=== PATIENT | male | born 1995 | race African-American/Black ===

== ENCOUNTER 2016-03-12 08:36 | Emergency (ER) | payer SELFPAY ==
[~2016-03-12] VITALS: Wt 75.0 kg
[~2016-03-12 08:36] MED LIST: ALBU18HF INHALATION; ALBU8.5H3 INH; ALBU8.5H5 INH; BECL8.7A INH; CLIN-73 PO; HYDR-3498 PO; IBUP-1542 PO; NAPR-688 PO; PRED20TA PO; RANI150T9 PO; RTPRO NEB
== END 2016-03-12 10:24 | disposition left against medical advice (07) ==
LOC: FTE 08:36
DX: Z53.21 Procedure and treatment not carried out due to patient leaving prior to being seen by health care provider (principal)

== ENCOUNTER 2016-03-29 23:17 | Emergency (ER) | payer SELFPAY ==
[~2016-03-29] VITALS: Ht 177.8 cm; Wt 65.9 kg
[2016-03-29 23:24] VITALS: Ht 177.8 cm; Wt 65.9 kg
--- NOTE | 2016-03-30 01:53 | ERD ---
ER Documentation Chief Complaint Date/Time DATE: 03/30/16 TIME: 01:45 Chief Complaint left elbow pain, fell from skateboard x 1 hour ago HPI 21-year-old male presents to emergency department for complaints of left elbow pain after falling off while skating an hour prior to arrival. Patient was skating, the skate got hooked on another person, and he fell, landed on the left elbow. Patient described the pain throbbing pain, 8/10 scale, is worse upon movement, accompanied with swelling. Patient did not take any medications to help with symptoms. ROS All systems reviewed and are negative except as per history of present illness. Medications Home Meds Active Scripts Naproxen* (Naproxen*) 500 Mg Tablet, 500 MG PO BID Y for PAIN, #14 TAB Prov:JOEY CHRISTIE DO 02/01/16 Ranitidine Hcl* (Zantac*) 150 Mg Tablet, 150 MG PO BID Y for EPIGASTRIC PAIN, # 30 TAB Prov:JOEY CHRISTIE DO 02/01/16 Beclomethasone Dip* (Qvar 40*) 7.3 Gm Inha, 1 PUFF INH BID, #1 INHALER Prov:ANDREI FRENCH MD 12/10/15 Albuterol Sulfate* (Ventolin HFA*) 18 Gm Hfa.aer.ad, 2 PUFF INHALATION Q4H, #1 INHALER Prov:ANDREI FRENCH MD 12/10/15 Prednisone* (Prednisone*) 20 Mg Tab, 60 MG PO DAILY for 5 Days, TAB 60 mg by mouth for 2 days then 40 mg a mouth for 3 days. Prov:ANDREI FRENCH MD 12/10/15 Beclomethasone Dip* (Qvar 40*) 7.3 Gm Inha, 1 PUFF INH BID, #2 INHALER Prov:ANDREI FRENCH MD 07/21/15 Albuterol Sulfate* (Ventolin HFA*) 18 Gm Hfa.aer.ad, 2 PUFF INHALATION Q4H, #2 INHALER Prov:ANDREI FRENCH MD 07/21/15 Prednisone* (Prednisone*) 20 Mg Tab, 40 MG PO DAILY for 4 Days, TAB Prov:JAMES HAYES PA-C 06/25/15 Albuterol Sulfate* (Proair HFA*) 8.5 Gm Hfa.aer.ad, 2 PUFF INH Q4, #1 INHALER Prov:JAMES HAYES PA-C 06/25/15 Albuterol Sulfate* (Proair HFA*) 8.5 Gm Hfa.aer.ad, 2 PUFF INH Q4, #1 INHALER Prov:JAMES HAYES PA-C 05/05/15 Albuterol Sulfate* (Proventil* Neb) 0.083% Neb, 2.5 MG NEB Q4 Y for SHORTNESS OF BREATH, #30 EA Prov:JAMES HAYES PA-C 05/05/15 Clindamycin Hcl* (Clindamycin Hcl*) 300 Mg Capsule, 300 MG PO TID for 10 Days, CAP Prov:JAMES HAYES PA-C 05/05/15 Ibuprofen* (Motrin*) 600 Mg Tab, 600 MG PO Q6, #30 TAB Prov:JAMES HAYES PA-C 05/05/15 Hydrocodone Bit-Acetaminophen* ([place]*) 5-325 Mg Tab, 1 TAB PO Q6 Y for PAIN, # 7 TAB Prov:JAMES HAYES PA-C 05/05/15 Prednisone* (Prednisone*) 20 Mg Tab, 40 MG PO DAILY for 4 Days, TAB Prov:JAMES HAYES PA-C 05/05/15 Beclomethasone Dip* (Qvar 40*) 7.3 Gm Inha, 1 PUFF INH BID, #1 INH Prov:ROBYN FIGUEROA PA-C 12/01/14 Albuterol Sulfate* (Albuterol Sulfate* HFA) 8.5 Gm Hfa.aer.ad, 1-2 PUFF INH Q4 Y for SHORTNESS OF BREATH, #1 EA Prov:ROBYN FIGUEROA PA-C 08/17/14 Allergies Allergies: Coded Allergies: No Known Allergy (Unverified , 03/29/16) PMhx/Soc History of Surgery: Yes (head surgery at 5 years old) Anesthesia Reaction: No Hx Neurological Disorder: No Hx Respiratory Disorders: Yes (asthma) Hx Cardiac Disorders: No Hx Psychiatric Problems: No Hx Miscellaneous Medical Probl: No Hx Alcohol Use: No Hx Substance Use: No Hx Tobacco Use: No FmHx Family History: No coronary disease, No diabetes, No other Physical Exam Vitals Vital Signs Date Time Temp Pulse Resp B/P Pulse Ox O2 Delivery O2 Flow Rate FiO2 03/29/16 23:24 98.3 62 20 131/56 100 Physical Exam GENERAL: The patient is well developed and appropriate for usual state of health, in no apparent distress. CHEST: Clear to auscultation bilaterally. There are no rales, wheezes or rhonchi. HEART: Regular rate and rhythm. No murmurs, clicks, rubs or gallops. No S3 or S4. ABDOMEN: Soft, nontender and nondistended. Good bowel sounds. No rebound or guarding. No gross peritonitis. No gross organomegaly or masses. No Starr sign or McBurney point tenderness. BACK: No midline or flank tenderness. EXTREMITIES: Tenderness on palpation on the left elbow, swelling noted, able to do full range of motion because of the pain. Equal pulses bilaterally. Full range of motion about the joints of the body. Grossly neurovascularly intact. NEURO: Alert and oriented. Cranial nerves 2-12 intact. Motor strength in all 4 extremities with 5/5 strength. Sensation grossly intact. Normal speech and gait. SKIN: There is no apparent rash or petechia. The skin is warm and dry. HEMATOLOGIC AND LYMPHATIC: There is no evidence of excessive bruising or lymphedema. No gross cervical, axillary, or inguinal lymphadenopathy. Results 24 hrs Current Medications Medications (Trade) Dose Ordered Sig/Clement Route PRN Reason Start Time Stop Time Status Last Admin Dose Admin Acetaminophen/ Hydrocodone Bitart ([place] (5/325)) 1 tab ONCE ONCE PO 03/30/16 02:00 03/30/16 02:01 DC 03/30/16 02:10 Patient was given medication for pain here in emergency department, after treatment, patient verbalized feeling much better. Patient's pain is improved. PROCEDURE: XR Elbow. CLINICAL INDICATION: Left elbow pain and swelling status post fall. TECHNIQUE: AP, lateral and oblique views of the left elbow performed. COMPARISON: None. FINDINGS: There is normal mineralization and alignment. No fracture or osseous lesion is identified. There are normal joints without evidence of arthritis or effusion. The soft tissues are unremarkable. IMPRESSION: Unremarkable examination. RPTAT: [facility] Physician Topher Date Time Electronically viewed and signed by Physician Topher on 03/30/2016 02:26 RS/ CC: GIULIA GOSS NP After receiving patients xray report, a long-arm splint was applied on the patients left arm. After application of the splint, patient has intact sensation and circulation on distal area of the affected joint. Patient does not complain of numbness or tingling after application of the splint. Patient tolerated procedure well. Sling was given to use afterwards Procedures/MDM Medical Decision Making: Patient's pain is most likely consistent with a contusion or a sprain. There is no suspicion for neurovascular compromise. Patient has intact sensation and circulation of the affected extremity. There is low suspicion for septic arthritis. Patient does not have any fever. Radiology exams of the affected area does not show any fracture or dislocation. Repeat x-rays in 1 week was recommended in case there was a hairline fracture noted. At this time, patient was splinted, and a sling was placed. Patient was advised to have it rechecked in one week with primary care doctor. No symptoms of compartment syndrome. Disposition: Home. Patient is given prescription for ibuprofen for mild to moderate pain, [place] for severe pain. Patient was advised to elevate the affected area and apply ice on affected area. Patient was advised that if symptoms are worse, numbness, tingling, high fever, unable to move joint, worsening symptoms, to return to emergency department immediately. Otherwise, patient is advised to follow up with the primary care doctor in 5-7 days for reevaluation of symptoms. Repeat x-rays in 1 week. Departure Diagnosis: Primary Impression: Elbow pain Laterality: left Qualified Code: M25.522 - Left elbow pain Condition: Stable Patient Instructions: Contusion, Elbow Additional Instructions: Patient is given prescription for ibuprofen for mild to moderate pain, [place] for severe pain. Patient was advised to elevate the affected area and apply ice on affected area. Patient was advised that if symptoms are worse, numbness, tingling, high fever, unable to move joint, worsening symptoms, to return to emergency department immediately. Otherwise, patient is advised to follow up with the primary care doctor in 5-7 days for reevaluation of symptoms. Repeat x- rays in 1 week. GIULIA GOSS NP Mar 30, 2016 01:53
[2016-03-30] MEDS ORDERED: HYDROCODONE/APAP (5/325) TAB PO ONE (02:00)
--- NOTE | 2016-03-30 02:27 | RADRPT ---
PROCEDURE: XR Elbow. CLINICAL INDICATION: Left elbow pain and swelling status post fall. TECHNIQUE: AP, lateral and oblique views of the left elbow performed. COMPARISON: None. FINDINGS: There is normal mineralization and alignment. No fracture or osseous lesion is identified. There are normal joints without evidence of arthritis or effusion. The soft tissues are unremarkable. IMPRESSION: Unremarkable examination. RPTAT: [facility] Physician Topher Date Time Electronically viewed and signed by Physician Topher on 03/30/2016 02:26 RS/
[2016-03-30] MEDS ORDERED: HYDR-906 PO (02:39)
[2016-03-30] MEDS ORDERED: IBUP-1542 PO (02:39)
[2016-03-30 03:35] VITALS: BP 120/60; PULSE 70; RESP 18; TEMP 98.7
== END 2016-03-30 03:35 | disposition home or self-care (01) ==
LOC: FTE 23:17
DX: S59.902A Unspecified injury of left elbow, initial encounter (principal); J45.909 Unspecified asthma, uncomplicated; V00.131A Fall from skateboard, initial encounter; Y92.9 Unspecified place or not applicable

== ENCOUNTER 2016-06-28 10:56 | Emergency (ER) | payer OTHER ==
[~2016-06-28] VITALS: Ht 180.3 cm; Wt 73.5 kg
[~2016-06-28 10:56] MED LIST changes: +HYDR-906 PO
[2016-06-28 10:58] VITALS: Ht 180.3 cm; Wt 73.5 kg
[2016-06-28] MEDS ORDERED: ALBU8.5H3 INH (11:37)
--- NOTE | 2016-06-28 19:55 | ERD ---
ER Documentation Chief Complaint Date/Time DATE: 06/28/16 TIME: 19:54 Chief Complaint med refill (proair) HPI 21-year-old man here for albuterol prescription. He states he has a history of asthma but denies wheezing at this time. Denies recent fevers or chills, no chest pain or shortness of breath. ROS All systems reviewed and are negative except as per history of present illness. Medications Home Meds Active Scripts Albuterol Sulfate* (Proair HFA*) 8.5 Gm Hfa.aer.ad, 2 PUFF INH Q6H Y for WHEEZING AND SOB, #1 INHALER 2 Refills Prov:CADEN MORA MD 06/28/16 Hydrocodone/Acetaminophen ([place] 5-325 Tablet) 1 Each Tablet, 1 TAB PO Q6H Y for SEVERE PAIN LEVEL 7-10, #20 TAB Prov:GIULIA GOSS NP 03/30/16 Ibuprofen* (Motrin*) 600 Mg Tab, 600 MG PO Q6H Y for PAIN AND OR ELEVATED TEMP, #30 TAB Prov:GIULIA GOSS NP 03/30/16 Naproxen* (Naproxen*) 500 Mg Tablet, 500 MG PO BID Y for PAIN, #14 TAB Prov:JOEY CHRISTIE DO 02/01/16 Ranitidine Hcl* (Zantac*) 150 Mg Tablet, 150 MG PO BID Y for EPIGASTRIC PAIN, # 30 TAB Prov:JOEY CHRISTIE DO 02/01/16 Beclomethasone Dip* (Qvar 40*) 7.3 Gm Inha, 1 PUFF INH BID, #1 INHALER Prov:ANDREI FRENCH MD 12/10/15 Albuterol Sulfate* (Ventolin HFA*) 18 Gm Hfa.aer.ad, 2 PUFF INHALATION Q4H, #1 INHALER Prov:ANDREI FRENCH MD 12/10/15 Prednisone* (Prednisone*) 20 Mg Tab, 60 MG PO DAILY for 5 Days, TAB 60 mg by mouth for 2 days then 40 mg a mouth for 3 days. Prov:ANDREI FRENCH MD 12/10/15 Beclomethasone Dip* (Qvar 40*) 7.3 Gm Inha, 1 PUFF INH BID, #2 INHALER Prov:ANDREI FRENCH MD 07/21/15 Albuterol Sulfate* (Ventolin HFA*) 18 Gm Hfa.aer.ad, 2 PUFF INHALATION Q4H, #2 INHALER Prov:ANDREI FRENCH MD 07/21/15 Prednisone* (Prednisone*) 20 Mg Tab, 40 MG PO DAILY for 4 Days, TAB Prov:JAMES HAYES PA-C 06/25/15 Albuterol Sulfate* (Proair HFA*) 8.5 Gm Hfa.aer.ad, 2 PUFF INH Q4, #1 INHALER Prov:JAMES HAYES PA-C 06/25/15 Albuterol Sulfate* (Proair HFA*) 8.5 Gm Hfa.aer.ad, 2 PUFF INH Q4, #1 INHALER Prov:JAMES HAYES PA-C 05/05/15 Albuterol Sulfate* (Proventil* Neb) 0.083% Neb, 2.5 MG NEB Q4 Y for SHORTNESS OF BREATH, #30 EA Prov:JAMES HAYES PA-C 05/05/15 Clindamycin Hcl* (Clindamycin Hcl*) 300 Mg Capsule, 300 MG PO TID for 10 Days, CAP Prov:JAMES HAYES PA-C 05/05/15 Ibuprofen* (Motrin*) 600 Mg Tab, 600 MG PO Q6, #30 TAB Prov:JAMES HAYES PA-C 05/05/15 Hydrocodone Bit-Acetaminophen* ([place]*) 5-325 Mg Tab, 1 TAB PO Q6 Y for PAIN, # 7 TAB Prov:JAMES HAYES PA-C 05/05/15 Prednisone* (Prednisone*) 20 Mg Tab, 40 MG PO DAILY for 4 Days, TAB Prov:JAMES HAYES PA-C 05/05/15 Beclomethasone Dip* (Qvar 40*) 7.3 Gm Inha, 1 PUFF INH BID, #1 INH Prov:ROBYN FIGUEROA PA-C 12/01/14 Albuterol Sulfate* (Albuterol Sulfate* HFA) 8.5 Gm Hfa.aer.ad, 1-2 PUFF INH Q4 Y for SHORTNESS OF BREATH, #1 EA Prov:ROBYN FIGUEROA PA-C 08/17/14 Allergies Allergies: Coded Allergies: No Known Allergy (Unverified , 06/28/16) PMhx/Soc Asthma History of Surgery: Yes (head surgery at 5 years old) Anesthesia Reaction: No Hx Neurological Disorder: No Hx Respiratory Disorders: Yes (asthma) Hx Cardiac Disorders: No Hx Psychiatric Problems: No Hx Miscellaneous Medical Probl: No Hx Alcohol Use: No Hx Substance Use: No Hx Tobacco Use: No Smoking Status: Unknown if ever smoked FmHx Family History: No diabetes Physical Exam Vitals Vital Signs Date Time Temp Pulse Resp B/P Pulse Ox O2 Delivery O2 Flow Rate FiO2 06/28/16 10:58 97.4 83 18 120/75 99 Physical Exam GENERAL: Well-developed, well-nourished, well-hydrated, in no apparent distress , looks nontoxic in appearance HEENT: Moist mucous membranes, pink conjunctiva, no cervical spine tenderness or step-off deformities, no goiter, no jaundice or icterus, extraocular movements intact without pain. No submandibular induration, and no pharyngeal erythema NEURO: Alert and oriented 3, cranial nerves II through XII intact bilaterally, pupils equal round reactive to light, no focal deficits or facial asymmetry, sensation intact distally Strength 5/5 in upper and lower extremities bilaterally CARDIAC: Regular rate and rhythm, no murmurs rubs or gallops LUNGS: Clear bilaterally no wheezing crackles or stridor ABDOMEN: Soft nontender, no guarding, no rigidity, no rebound, no psoas sign no obturator sign. Normoactive bowel sounds SKIN: Warm and dry to touch, no abrasions, contusions, or hematomas, no lacerations, no ecchymosis, no target lesions, and without ulcers EXTREMITIES: No clubbing cyanosis or edema, calves are bilaterally symmetrical, no Homans sign, no popliteal cord sign. Distal pulses equal and bilateral PSYCH: Normal affect without agitation or irritability Procedures/MDM Differential diagnoses considered, included but not limited to acute coronary syndrome, pulmonary embolism, aortic dissection, abdominal aortic aneurysm, sepsis, stroke, meningitis, encephalitis, pneumonia, appendicitis, cholecystitis , bowel obstruction, pyelonephritis, nephrolithiasis, cystitis, as well as metabolic, hematologic, and electrolyte abnormalities. As well as abscess, cellulitis, fractures, and dislocations. Patient feels much better at this time, and vital signs are normal, symptoms have improved. I did give strict instructions to return to the ED if symptoms continue or worsen, patient will otherwise follow-up with primary care physician. Patient understood instructions and agreed to plan. Departure Diagnosis: Primary Impression: Encounter for medication refill Condition: Good Patient Instructions: Asthma, Acute (Adult) Referrals: ANTONIO ELIZABETH DAVID MD Jun 28, 2016 19:55
== END 2016-06-28 12:08 | disposition home or self-care (01) ==
LOC: FTE 10:56
DX: Z76.0 Encounter for issue of repeat prescription (principal); J45.909 Unspecified asthma, uncomplicated
CPT/HCPCS: 99281

== ENCOUNTER 2016-08-12 22:15 | Emergency (ER) | payer OTHER ==
[~2016-08-12] VITALS: Ht 180.3 cm; Wt 74.0 kg
[2016-08-12 22:29] VITALS: Ht 180.3 cm; Wt 74.0 kg
[2016-08-12] MEDS ORDERED: NEOMYC/POLYMYX/BACIT 0.9 GM OINT TOP ONE (23:30)
[2016-08-12] MEDS ORDERED: IBUPROFEN 200 MG TAB PO ONE (23:30)
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
[2016-08-13] MEDS ORDERED: CEPH-443 PO (00:52)
[2016-08-13] MEDS ORDERED: IBUP400T22 PO (00:52)
[2016-08-13] MEDS ORDERED: CYCL-319 PO (00:52)
[2016-08-13 01:01] VITALS: BP 113/72; PULSE 63; RESP 16; TEMP 97.4
== END 2016-08-13 01:03 | disposition home or self-care (01) ==
LOC: FTE 22:15
DX: S50.812A Abrasion of left forearm, initial encounter (principal); S39.92XA Unspecified injury of lower back, initial encounter; J45.909 Unspecified asthma, uncomplicated; S60.551A Superficial foreign body of right hand, initial encounter; S60.552A Superficial foreign body of left hand, initial encounter; V86.59XA Driver of other special all-terrain or other off-road motor vehicle injured in nontraffic accident, initial encounter
CPT/HCPCS: Z7502; Z7610; 99284

== ENCOUNTER 2016-08-31 10:31 | Emergency (ER) | payer OTHER ==
[~2016-08-31] VITALS: Ht 157.5 cm; Wt 74.0 kg
[~2016-08-31 10:31] MED LIST changes: +CEPH-443 PO; +CYCL-319 PO; +IBUP400T22 PO
[2016-08-31 10:34] VITALS: Ht 157.5 cm; Wt 74.0 kg
[2016-08-31] MEDS ORDERED: ALBU18HF INHALATION (10:51)
--- NOTE | 2016-08-31 13:49 | ERD ---
ER Documentation Chief Complaint Date/Time DATE: 08/31/16 TIME: 13:48 Chief Complaint medication refill HPI Patient is a 21-year-old male with asthma who presents for a refill of his Ventolin. The patient said that he still has Ventolin but needs a refill for when he runs out. He works as a wheel loader operator and feels like he cannot work without this. Upon review of old medical records the patient has multiple visits to the ER for various complaints. He does not remember the name of his primary doctor. ROS All systems reviewed and are negative except as per history of present illness. Medications Home Meds Active Scripts Albuterol Sulfate* (Ventolin HFA*) 18 Gm Hfa.aer.ad, 2 PUFF INHALATION Q4H, #1 INHALER Prov:LEANNE FRANKLIN MD 08/31/16 Cyclobenzaprine Hcl* (Cyclobenzaprine Hcl*) 10 Mg Tablet, 10 MG PO TID, #15 TAB Prov:YRIS,LUAN 08/13/16 Ibuprofen* (Motrin*) 400 Mg Tab, 400 MG PO Q6, #30 TAB Prov:YRIS,LUAN 08/13/16 Cephalexin* (Keflex*) 500 Mg Capsule, 500 MG PO QID for 10 Days, CAP Prov:YRIS,LUAN 08/13/16 Albuterol Sulfate* (Proair HFA*) 8.5 Gm Hfa.aer.ad, 2 PUFF INH Q6H Y for WHEEZING AND SOB, #1 INHALER 2 Refills Prov:CADEN MORA MD 06/28/16 Hydrocodone/Acetaminophen ([place] 5-325 Tablet) 1 Each Tablet, 1 TAB PO Q6H Y for SEVERE PAIN LEVEL 7-10, #20 TAB Prov:GIULIA GOSS NP 03/30/16 Ibuprofen* (Motrin*) 600 Mg Tab, 600 MG PO Q6H Y for PAIN AND OR ELEVATED TEMP, #30 TAB Prov:GIULIA GOSS NP 03/30/16 Naproxen* (Naproxen*) 500 Mg Tablet, 500 MG PO BID Y for PAIN, #14 TAB Prov:JOEY CHRISTIE DO 02/01/16 Ranitidine Hcl* (Zantac*) 150 Mg Tablet, 150 MG PO BID Y for EPIGASTRIC PAIN, # 30 TAB Prov:JOEY CHRISTIE DO 02/01/16 Beclomethasone Dip* (Qvar 40*) 7.3 Gm Inha, 1 PUFF INH BID, #1 INHALER Prov:ANDREI FRENCH MD 12/10/15 Albuterol Sulfate* (Ventolin HFA*) 18 Gm Hfa.aer.ad, 2 PUFF INHALATION Q4H, #1 INHALER Prov:ANDREI FRENCH MD 12/10/15 Prednisone* (Prednisone*) 20 Mg Tab, 60 MG PO DAILY for 5 Days, TAB 60 mg by mouth for 2 days then 40 mg a mouth for 3 days. Prov:ANDREI FRENCH MD 12/10/15 Beclomethasone Dip* (Qvar 40*) 7.3 Gm Inha, 1 PUFF INH BID, #2 INHALER Prov:ANDREI FRENCH MD 07/21/15 Albuterol Sulfate* (Ventolin HFA*) 18 Gm Hfa.aer.ad, 2 PUFF INHALATION Q4H, #2 INHALER Prov:ANDREI FRENCH MD 07/21/15 Prednisone* (Prednisone*) 20 Mg Tab, 40 MG PO DAILY for 4 Days, TAB Prov:JAMES HAYES PA-C 06/25/15 Albuterol Sulfate* (Proair HFA*) 8.5 Gm Hfa.aer.ad, 2 PUFF INH Q4, #1 INHALER Prov:JAMES HAYES PA-C 06/25/15 Albuterol Sulfate* (Proair HFA*) 8.5 Gm Hfa.aer.ad, 2 PUFF INH Q4, #1 INHALER Prov:JAMES HAYES PA-C 05/05/15 Albuterol Sulfate* (Proventil* Neb) 0.083% Neb, 2.5 MG NEB Q4 Y for SHORTNESS OF BREATH, #30 EA Prov:JAMES HAYES PA-C 05/05/15 Clindamycin Hcl* (Clindamycin Hcl*) 300 Mg Capsule, 300 MG PO TID for 10 Days, CAP Prov:JAMES HAYES PA-C 05/05/15 Ibuprofen* (Motrin*) 600 Mg Tab, 600 MG PO Q6, #30 TAB Prov:JAMES HAYES PA-C 05/05/15 Hydrocodone Bit-Acetaminophen* ([place]*) 5-325 Mg Tab, 1 TAB PO Q6 Y for PAIN, # 7 TAB Prov:JAMES HAYES PA-C 05/05/15 Prednisone* (Prednisone*) 20 Mg Tab, 40 MG PO DAILY for 4 Days, TAB Prov:JAMES HAYES PA-C 05/05/15 Beclomethasone Dip* (Qvar 40*) 7.3 Gm Inha, 1 PUFF INH BID, #1 INH Prov:ROBYN FIGUEROA PA-C 12/01/14 Albuterol Sulfate* (Albuterol Sulfate* HFA) 8.5 Gm Hfa.aer.ad, 1-2 PUFF INH Q4 Y for SHORTNESS OF BREATH, #1 EA Prov:ROBYN FIGUEROA PA-C 08/17/14 Allergies Allergies: Coded Allergies: No Known Allergy (Unverified , 08/31/16) PMhx/Soc History of Surgery: Yes (head surgery at 5 years old) Anesthesia Reaction: No Hx Neurological Disorder: No Hx Respiratory Disorders: Yes (asthma) Hx Cardiac Disorders: No Hx Psychiatric Problems: No Hx Miscellaneous Medical Probl: No Hx Alcohol Use: Yes Hx Substance Use: No Hx Tobacco Use: No FmHx Family History: No diabetes Physical Exam Vitals Vital Signs Date Time Temp Pulse Resp B/P Pulse Ox O2 Delivery O2 Flow Rate FiO2 08/31/16 10:34 97.8 58 20 108/62 99 Physical Exam Const: No acute distress Head: Atraumatic Eyes: Normal Conjunctiva ENT: Normal External Ears, Nose and Mouth. Neck: Full range of motion..~ No meningismus. Resp: Clear to auscultation bilaterally Cardio: Regular rate and rhythm, no murmurs Abd: Soft, non tender, non distended. Normal bowel sounds Skin: No petechiae or rashes Back: No midline or flank tenderness Ext: No cyanosis, or edema Neur: Awake and alert Psych: Normal Mood and Affect Procedures/MDM Patient is a 21-year-old male presents for a refill for his Ventolin. The patient will be given a prescription for Ventolin. He has no difficulty with breathing at this time and has no complaints. He can return for any worsening symptoms. Departure Diagnosis: Primary Impression: Encounter for medication refill Condition: Fair Patient Instructions: Asthma Medications Referrals: [facility] Additional Instructions: Call your primary care doctor TOMORROW for an appointment during the next 1 WEEK.Tell the medical secretary receptionist that you were referred from this facility.See the doctor sooner or return here if your condition worsens before your appointment time. LEANNE FRANKLIN MD Aug 31, 2016 13:49
== END 2016-08-31 11:07 | disposition home or self-care (01) ==
LOC: FTE 10:31
DX: Z76.0 Encounter for issue of repeat prescription (principal); J45.909 Unspecified asthma, uncomplicated
CPT/HCPCS: 99283

== ENCOUNTER 2016-09-18 10:55 | Emergency (ER) | END 2016-09-18 11:30 | disposition home or self-care (01) | DX: Z09 Encounter for follow-up examination after completed treatment for conditions other than malignant neoplasm (principal); J45.909 Unspecified asthma, uncomplicated ==

== ENCOUNTER 2016-09-28 07:29 | Emergency (ER) | payer OTHER ==
[~2016-09-28] VITALS: Wt 91.0 kg
[2016-09-28] MEDS ORDERED: ALBU18HF INHALATION (07:41)
--- NOTE | 2016-09-28 07:46 | ERD ---
ER Documentation Chief Complaint Date/Time DATE: 09/28/16 TIME: 07:44 Chief Complaint MED REFILL HPI This is a 21-year-old male who presents the emergency department today for a medication refill and work note. Patient states he was sent here to the emergency department by his employer because his inhaler is "". Denies any symptoms at this time. Denies any fevers or chills or cough. ROS All systems reviewed and are negative except as per history of present illness. Medications Home Meds Active Scripts Albuterol Sulfate* (Ventolin HFA*) 18 Gm Hfa.aer.ad, 2 PUFF INHALATION Q4H, #1 INHALER Prov:JAZMIN AGGARWAL PA-C 09/28/16 Albuterol Sulfate* (Ventolin HFA*) 18 Gm Hfa.aer.ad, 2 PUFF INHALATION Q4H, #1 INHALER Prov:LEANNE FRANKLIN MD 08/31/16 Cyclobenzaprine Hcl* (Cyclobenzaprine Hcl*) 10 Mg Tablet, 10 MG PO TID, #15 TAB Prov:YRIS,LUAN 08/13/16 Ibuprofen* (Motrin*) 400 Mg Tab, 400 MG PO Q6, #30 TAB Prov:YRIS,LUAN 08/13/16 Cephalexin* (Keflex*) 500 Mg Capsule, 500 MG PO QID for 10 Days, CAP Prov:YRIS,LUAN 08/13/16 Albuterol Sulfate* (Proair HFA*) 8.5 Gm Hfa.aer.ad, 2 PUFF INH Q6H Y for WHEEZING AND SOB, #1 INHALER 2 Refills Prov:CADEN MORA MD 06/28/16 Hydrocodone/Acetaminophen ([place] 5-325 Tablet) 1 Each Tablet, 1 TAB PO Q6H Y for SEVERE PAIN LEVEL 7-10, #20 TAB Prov:GIULIA GOSS NP 03/30/16 Ibuprofen* (Motrin*) 600 Mg Tab, 600 MG PO Q6H Y for PAIN AND OR ELEVATED TEMP, #30 TAB Prov:GIULIA GOSS NP 03/30/16 Naproxen* (Naproxen*) 500 Mg Tablet, 500 MG PO BID Y for PAIN, #14 TAB Prov:JOEY CHRISTIE DO 02/01/16 Ranitidine Hcl* (Zantac*) 150 Mg Tablet, 150 MG PO BID Y for EPIGASTRIC PAIN, # 30 TAB Prov:JOEY CHRISTIE DO 02/01/16 Beclomethasone Dip* (Qvar 40*) 7.3 Gm Inha, 1 PUFF INH BID, #1 INHALER Prov:ANDREI FRENCH MD 12/10/15 Albuterol Sulfate* (Ventolin HFA*) 18 Gm Hfa.aer.ad, 2 PUFF INHALATION Q4H, #1 INHALER Prov:ANDREI FRENCH MD 12/10/15 Prednisone* (Prednisone*) 20 Mg Tab, 60 MG PO DAILY for 5 Days, TAB 60 mg by mouth for 2 days then 40 mg a mouth for 3 days. Prov:ANDREI FRENCH MD 12/10/15 Beclomethasone Dip* (Qvar 40*) 7.3 Gm Inha, 1 PUFF INH BID, #2 INHALER Prov:ANDREI FRENCH MD 07/21/15 Albuterol Sulfate* (Ventolin HFA*) 18 Gm Hfa.aer.ad, 2 PUFF INHALATION Q4H, #2 INHALER Prov:ANDREI FRENCH MD 07/21/15 Prednisone* (Prednisone*) 20 Mg Tab, 40 MG PO DAILY for 4 Days, TAB Prov:JAMES HAYES PA-C 06/25/15 Albuterol Sulfate* (Proair HFA*) 8.5 Gm Hfa.aer.ad, 2 PUFF INH Q4, #1 INHALER Prov:JAMES HAYES PA-C 06/25/15 Albuterol Sulfate* (Proair HFA*) 8.5 Gm Hfa.aer.ad, 2 PUFF INH Q4, #1 INHALER Prov:JAMES HAYES PA-C 05/05/15 Albuterol Sulfate* (Proventil* Neb) 0.083% Neb, 2.5 MG NEB Q4 Y for SHORTNESS OF BREATH, #30 EA Prov:JAMES HAYES PA-C 05/05/15 Clindamycin Hcl* (Clindamycin Hcl*) 300 Mg Capsule, 300 MG PO TID for 10 Days, CAP Prov:JAMES HAYES PA-C 05/05/15 Ibuprofen* (Motrin*) 600 Mg Tab, 600 MG PO Q6, #30 TAB Prov:JAMES HAYES PA-C 05/05/15 Hydrocodone Bit-Acetaminophen* ([place]*) 5-325 Mg Tab, 1 TAB PO Q6 Y for PAIN, # 7 TAB Prov:JAMES HAYES PA-C 05/05/15 Prednisone* (Prednisone*) 20 Mg Tab, 40 MG PO DAILY for 4 Days, TAB Prov:JAMES HAYES PA-C 05/05/15 Beclomethasone Dip* (Qvar 40*) 7.3 Gm Inha, 1 PUFF INH BID, #1 INH Prov:ROBYN FIGUEROA PA-C 12/01/14 Albuterol Sulfate* (Albuterol Sulfate* HFA) 8.5 Gm Hfa.aer.ad, 1-2 PUFF INH Q4 Y for SHORTNESS OF BREATH, #1 EA Prov:ROBYN FIGUEROA PA-C 08/17/14 Allergies Allergies: Coded Allergies: No Known Allergy (Unverified , 09/18/16) PMhx/Soc History of Surgery: Yes (head surgery at 5 years old) Anesthesia Reaction: No Hx Neurological Disorder: No Hx Respiratory Disorders: Yes (asthma) Hx Cardiac Disorders: No Hx Psychiatric Problems: No Hx Miscellaneous Medical Probl: No Hx Alcohol Use: Yes (socially) Hx Substance Use: No Hx Tobacco Use: No Smoking Status: Never smoker Physical Exam Vitals Vital Signs Date Time Temp Pulse Resp B/P Pulse Ox O2 Delivery O2 Flow Rate FiO2 09/28/16 07:31 98.0 65 18 132/81 99 Physical Exam Const: No acute distress Head: Atraumatic Eyes: Normal Conjunctiva ENT: Normal External Ears, Nose and Mouth. Neck: Full range of motion..~ No meningismus. Resp: Clear to auscultation bilaterally Cardio: Regular rate and rhythm, no murmurs Skin: No petechiae or rashes Neur: Awake and alert Psych: Normal Mood and Affect Procedures/MDM This is a 21-year-old male who presents to the emergency department today for refill on his medication as he was sent here to the emergency department by his employer because his inhaler was "". In looking at the patient's inhaler at the expiration is September 2017. I explained to the patient that the # 18 is the year and not the day of the month. I explained to the patient that the inhaler is not . Patient understood. I have explained to him that he needs to explain this to his employer. I did also put this on a work note. Patient has no complaints at this time. He is not having an acute asthma attack. I do not feel he requires workup or imaging at this time. Patient was here for medication refill and work note. I did give the patient a refill on his Ventolin. At this time the patient is stable for discharge and outpatient management. Patient should follow up with their PCP in the next 1-2 days. They may return to the emergency department sooner for any persistent or worsening of symptoms. Patient understood and agreed with the plan. Departure Diagnosis: Primary Impression: Encounter for medication refill Condition: Fair Patient Instructions: Taking Medicine Safely Referrals: [facility] YOU HAVE RECEIVED A MEDICAL SCREENING EXAM AND THE RESULTS INDICATE THAT YOU DO NOT HAVE A CONDITION THAT REQUIRES URGENT TREATMENT IN THE EMERGENCY DEPARTMENT. FURTHER EVALUATION AND TREATMENT OF YOUR CONDITION CAN WAIT UNTIL YOU ARE SEEN IN YOUR DOCTORS OFFICE WITHIN THE NEXT 1-2 DAYS. IT IS YOUR RESPONSIBILITY TO MAKE AN APPOINTMENT FOR FOLOW-UP CARE. IF YOU HAVE A PRIMARY DOCTOR --you should call your primary doctor and schedule an appointment IF YOU DO NOT HAVE A PRIMARY DOCTOR YOU CAN CALL OUR PHYSICIAN REFERRAL HOTLINE AT IF YOU CAN NOT AFFORD TO SEE A PHYSICIAN YOU CAN CHOSE FROM THE FOLLOWING [facility] [address] [facility]. [facility] [address] [facility]. [facility] [address] [facility]. [facility] [address] [facility] [address] [facility]. [facility]. [address] Additional Instructions: Call your primary care doctor TOMORROW for an appointment during the next 1-2 days.See the doctor sooner or return here if your condition worsens before your appointment time. Take medication as prescribed JAZMIN AGGARWAL PA-C Sep 28, 2016 07:46
== END 2016-09-28 07:53 | disposition home or self-care (01) ==
LOC: FTE 07:29
DX: Z76.0 Encounter for issue of repeat prescription (principal); J45.909 Unspecified asthma, uncomplicated
CPT/HCPCS: 99281

== ENCOUNTER 2016-12-30 21:16 | Emergency (ER) | payer OTHER ==
[~2016-12-30] VITALS: Ht 172.7 cm; Wt 73.0 kg
[2016-12-30 21:33] VITALS: Ht 172.7 cm; Wt 73.0 kg
[2016-12-31] MEDS ORDERED: predniSONE 20 MG TAB PO STA (00:27)
[2016-12-31] MEDS ORDERED: IPRATROPIUM (NEB) 0.5 MG/2.5 ML AMP NEB STA (00:27)
[2016-12-31] MEDS ORDERED: ALBUTEROL 0.5% (NEB) 2.5 MG/0.5 ML AMP INH STA (00:27)
[2016-12-31] MEDS ORDERED: IBUPROFEN 600 MG TAB PO ONE (01:30)
[2016-12-31] MEDS ORDERED: ALBU8.5H3 INH (01:32)
[2016-12-31] MEDS ORDERED: PRED20TA PO (01:32)
[2016-12-31 02:03] VITALS: BP 115/67; PULSE 67; RESP 14; TEMP 98.8
--- NOTE | 2016-12-31 02:03 | ERD ---
ER Documentation Chief Complaint Chief Complaint shortness of breath/asthma x 2 hours HPI Patient is 21-year-old male with a past medical history of asthma presents to the ED for concerns of shortness of breath and wheezing 3 hours. Patient states he ran out of his albuterol inhaler. Patient states he does have a dry cough. Patient denies any fevers. Patient denies any previous history of requiring intubation. Patient denies any chest pain, left upper extremity pain , diaphoresis, nausea, vomiting or loss of consciousness. Patient denies any recent travel or sick contacts. ROS All systems reviewed and are negative except as per history of present illness. Medications Home Meds Active Scripts Albuterol Sulfate* (Proair HFA*) 8.5 Gm Hfa.aer.ad, 2 PUFF INH Q4, #1 INHALER Prov:BOBBY AVENDANO PA-C 12/31/16 Prednisone* (Prednisone*) 20 Mg Tab, 40 MG PO DAILY for 4 Days, TAB Prov:BOBBY AVENDANO PA-C 12/31/16 Albuterol Sulfate* (Ventolin HFA*) 18 Gm Hfa.aer.ad, 2 PUFF INHALATION Q4H, #1 INHALER Prov:JAZMIN AGGARWAL PA-C 09/28/16 Albuterol Sulfate* (Ventolin HFA*) 18 Gm Hfa.aer.ad, 2 PUFF INHALATION Q4H, #1 INHALER Prov:LEANNE FRANKLIN MD 08/31/16 Cyclobenzaprine Hcl* (Cyclobenzaprine Hcl*) 10 Mg Tablet, 10 MG PO TID, #15 TAB Prov:YRIS,LUAN 08/13/16 Ibuprofen* (Motrin*) 400 Mg Tab, 400 MG PO Q6, #30 TAB Prov:YRIS,LUAN 08/13/16 Cephalexin* (Keflex*) 500 Mg Capsule, 500 MG PO QID for 10 Days, CAP Prov:YRIS,LUAN 08/13/16 Albuterol Sulfate* (Proair HFA*) 8.5 Gm Hfa.aer.ad, 2 PUFF INH Q6H Y for WHEEZING AND SOB, #1 INHALER 2 Refills Prov:CADEN MORA MD 06/28/16 Hydrocodone/Acetaminophen ([place] 5-325 Tablet) 1 Each Tablet, 1 TAB PO Q6H Y for SEVERE PAIN LEVEL 7-10, #20 TAB Prov:SHANELLETREMAINEGIULIA BOSCH [place] 03/30/16 Ibuprofen* (Motrin*) 600 Mg Tab, 600 MG PO Q6H Y for PAIN AND OR ELEVATED TEMP, #30 TAB Prov:KAITLYNGIULIA BOSCH [place] 03/30/16 Naproxen* (Naproxen*) 500 Mg Tablet, 500 MG PO BID Y for PAIN, #14 TAB Prov:JOEY CHRISTIE DO 02/01/16 Ranitidine Hcl* (Zantac*) 150 Mg Tablet, 150 MG PO BID Y for EPIGASTRIC PAIN, # 30 TAB Prov:JOEY CHRISTIE DO 02/01/16 Beclomethasone Dip* (Qvar 40*) 7.3 Gm Inha, 1 PUFF INH BID, #1 INHALER Prov:ANDREI FRENCH MD 12/10/15 Albuterol Sulfate* (Ventolin HFA*) 18 Gm Hfa.aer.ad, 2 PUFF INHALATION Q4H, #1 INHALER Prov:ANDREI FRENCH MD 12/10/15 Prednisone* (Prednisone*) 20 Mg Tab, 60 MG PO DAILY for 5 Days, TAB 60 mg by mouth for 2 days then 40 mg a mouth for 3 days. Prov:ANDREI FRENCH MD 12/10/15 Beclomethasone Dip* (Qvar 40*) 7.3 Gm Inha, 1 PUFF INH BID, #2 INHALER Prov:ANDREI FRENCH MD 07/21/15 Albuterol Sulfate* (Ventolin HFA*) 18 Gm Hfa.aer.ad, 2 PUFF INHALATION Q4H, #2 INHALER Prov:ANDREI FRENCH MD 07/21/15 Prednisone* (Prednisone*) 20 Mg Tab, 40 MG PO DAILY for 4 Days, TAB Prov:JAMES HAYES PA-C 06/25/15 Albuterol Sulfate* (Proair HFA*) 8.5 Gm Hfa.aer.ad, 2 PUFF INH Q4, #1 INHALER Prov:JAMES HAYES PA-C 06/25/15 Albuterol Sulfate* (Proair HFA*) 8.5 Gm Hfa.aer.ad, 2 PUFF INH Q4, #1 INHALER Prov:JAMES HAYES PA-C 05/05/15 Albuterol Sulfate* (Proventil* Neb) 0.083% Neb, 2.5 MG NEB Q4 Y for SHORTNESS OF BREATH, #30 EA Prov:JAMES HAYES PA-C 05/05/15 Clindamycin Hcl* (Clindamycin Hcl*) 300 Mg Capsule, 300 MG PO TID for 10 Days, CAP Prov:JAMES HAYES PA-C 05/05/15 Ibuprofen* (Motrin*) 600 Mg Tab, 600 MG PO Q6, #30 TAB Prov:JAMES HAYES PA-C 05/05/15 Hydrocodone Bit-Acetaminophen* ([place]*) 5-325 Mg Tab, 1 TAB PO Q6 Y for PAIN, # 7 TAB Prov:JAMES HAYES PA-C 05/05/15 Prednisone* (Prednisone*) 20 Mg Tab, 40 MG PO DAILY for 4 Days, TAB Prov:JAMES HAYES PA-C 05/05/15 Beclomethasone Dip* (Qvar 40*) 7.3 Gm Inha, 1 PUFF INH BID, #1 INH Prov:ROBYN FIGUEROA PA-C 12/01/14 Albuterol Sulfate* (Albuterol Sulfate* HFA) 8.5 Gm Hfa.aer.ad, 1-2 PUFF INH Q4 Y for SHORTNESS OF BREATH, #1 EA Prov:ROBYN FIGUEROA PA-C 08/17/14 Allergies Allergies: Coded Allergies: No Known Allergy (Unverified , 12/30/16) PMhx/Soc History of Surgery: Yes (skull surgery) Anesthesia Reaction: No Hx Neurological Disorder: No Hx Respiratory Disorders: Yes (asthma) Hx Cardiac Disorders: No Hx Psychiatric Problems: No Hx Miscellaneous Medical Probl: No Hx Alcohol Use: No Hx Substance Use: No Hx Tobacco Use: No FmHx Family History: No diabetes Physical Exam Vitals Vital Signs Date Time Temp Pulse Resp B/P Pulse Ox O2 Delivery O2 Flow Rate FiO2 12/31/16 00:52 75 22 99 21 12/30/16 21:33 98.0 81 20 119/80 98 Physical Exam GENERAL: Well-developed, well-nourished male. Appears in no acute distress. No abdominal retractions or nasal flaring noted. HEAD: Normocephalic, atraumatic. EYES: Pupils are equally reactive bilaterally. EOMs grossly intact. No conjunctival erythema. ENT: Moist mucous membranes. No uvula deviation. No kissing tonsils. NECK: Supple. No meningismus. Normal range of motion of the neck. LUNG: Wheezing noted in bilateral lower lobes. CHEST: Tender to palpation of the mid sternal/chest wall. Pain is reproducible. HEART: Regular rate and rhythm. No murmurs, rubs or gallops. EXTREMITIES: Equal pulses bilaterally. No peripheral clubbing, cyanosis or edema. No unilateral leg swelling. NEUROLOGIC: Alert and oriented. Moving all four extremities without any difficulty. Normal speech. Steady gait. SKIN: Normal color. Warm and dry. No rashes or lesions. Results 24 hrs Current Medications Medications (Trade) Dose Ordered Sig/Clement Route PRN Reason Start Time Stop Time Status Last Admin Dose Admin Ipratropium [place] (Atrovent 0.02% (Neb)) 1 mg ONCE STAT NEB 12/31/16 00:27 12/31/16 00:28 DC 12/31/16 00:44 Albuterol (Proventil 0.5% (Neb)) 10 mg ONCE STAT INH 12/31/16 00:27 12/31/16 00:28 DC 12/31/16 00:44 Prednisone (Prednisone) 60 mg ONCE STAT PO 12/31/16 00:27 12/31/16 00:28 DC 12/31/16 00:36 Ibuprofen (Motrin) 600 mg ONCE ONCE PO 12/31/16 01:30 12/31/16 01:31 DC 12/31/16 01:37 Procedures/MDM ED COURSE: The patient was stable throughout ED course. I kept the patient and/or family informed of laboratory and diagnostic imaging results throughout the ED course. MEDICATIONS GIVEN: Albuterol, prednisone Patient tolerated medication well with no adverse reactions. MEDICAL DECISION MAKING: This is a 21-year-old male who presents to the ED for concerns of shortness of breath and wheezing 3 hours. Patient does have a history of asthma. Vital signs were reviewed. Patient was afebrile. Patient was not hypoxic. ENT exam was normal. Lung exam revealed wheezing in bilateral lower lobes. Patient was given a 1 hour albuterol/ipratropium breathing treatment. Patient was also given prednisone here in the ED. Upon reexamination patient had improved breath sounds. Patient's O2 sat remained above 95% throughout the ED course. Given these findings, the patients presentation is most consistent with asthma exacerbation secondary to viral illness. Low suspicion for the patient requiring asthma asthmaticus, respiratory distress, respiratory failure, pneumonia, meningitis, sinusitis, otitis externa, acute otitis media, strep pharyngitis, epiglottitis or peritonsillar abscess. Low suspicion for the patient requiring intubation and inpatient admission at this time. PRESCRIPTIONS: Albuterol, prednisone DISCHARGE: At this time, patient is stable for discharge and outpatient management. Supportive therapies such as OTC throat lozenges, salt water gurgles, popsicles and jello discussed. I have instructed the patient to follow-up with his/her primary care physician in 1-2 days. I have instructed the patient to promptly return to the ER for any new or worsening symptoms including increased pain, swelling, fever, nausea, vomiting, weakness or difficulty breathing. The patient and/or family expressed understanding of and agreement with this plan. All questions were answered. Home care instructions were provided. Disclaimer: Inadvertent spelling and grammatical errors are likely due to EHR/ dictation software use and do not reflect on the overall quality of patient care. Also, please note that the electronic time recorded on this note does not necessarily reflect the actual time of the patient encounter. Departure Diagnosis: Primary Impression: Asthma exacerbation Asthma severity: unspecified severity Asthma persistence: unspecified Qualified Code: J45.901 - Exacerbation of asthma, unspecified asthma severity, unspecified whether persistent Condition: Stable Patient Instructions: Asthma Medications Referrals: COMM[facility]ITY CLINICS YOU HAVE RECEIVED A MEDICAL SCREENING EXAM AND THE RESULTS INDICATE THAT YOU DO NOT HAVE A CONDITION THAT REQUIRES URGENT TREATMENT IN THE EMERGENCY DEPARTMENT. FURTHER EVALUATION AND TREATMENT OF YOUR CONDITION CAN WAIT UNTIL YOU ARE SEEN IN YOUR DOCTORS OFFICE WITHIN THE NEXT 1-2 DAYS. IT IS YOUR RESPONSIBILITY TO MAKE AN APPOINTMENT FOR FOLOW-UP CARE. IF YOU HAVE A PRIMARY DOCTOR --you should call your primary doctor and schedule an appointment IF YOU DO NOT HAVE A PRIMARY DOCTOR YOU CAN CALL OUR PHYSICIAN REFERRAL HOTLINE AT IF YOU CAN NOT AFFORD TO SEE A PHYSICIAN YOU CAN CHOSE FROM THE FOLLOWING [facility] CL[facility] [address] [place] [facility] [facility] [address] [place] [facility] [address] [facility] [address] [facility] [address] [facility]. [facility]. [address] [facility] YOU HAVE RECEIVED A MEDICAL SCREENING EXAM AND THE RESULTS INDICATE THAT YOU DO NOT HAVE A CONDITION THAT REQUIRES URGENT TREATMENT IN THE EMERGENCY DEPARTMENT. FURTHER EVALUATION AND TREATMENT OF YOUR CONDITION CAN WAIT UNTIL YOU ARE SEEN IN YOUR DOCTORS OFFICE WITHIN THE NEXT 1-2 DAYS. IT IS YOUR RESPONSIBILITY TO MAKE AN APPOINTMENT FOR FOLOW-UP CARE. IF YOU HAVE A PRIMARY DOCTOR --you should call your primary doctor and schedule and appointment IF YOU DO NOT HAVE A PRIMARY DOCTOR YOU CAN CALL OUR PHYSICIAN REFERRAL HOTLINE AT . IF YOU CAN NOT AFFORD TO SEE A PHYSICIAN YOU CAN CHOSE FROM THE FOLLOWING [facility] INSTITUTIONS: [facility] [address] [place] [address] [facility] [address] [place] [address] [facility] [address] [place] [address] Additional Instructions: Call your primary care doctor TOMORROW for an appointment during the next 1-2 days.See the doctor sooner or return here if your condition worsens before your appointment time. Return to the emergency department for any new or worsening symptoms including worsening shortness of breath, wheezing, retractions, tripoding, nasal flaring or loss consciousness. BOBBY AVENDANO PA-C Dec 31, 2016 02:03
== END 2016-12-31 02:12 | disposition home or self-care (01) ==
LOC: FTE 21:16
DX: J45.901 Unspecified asthma with (acute) exacerbation (principal)
CPT/HCPCS: 94644; J7512; Z7502; Z7610; 94664

== ENCOUNTER 2017-02-05 08:56 | Emergency (ER) | payer OTHER ==
[~2017-02-05] VITALS: Ht 175.3 cm; Wt 73.0 kg
[2017-02-05 09:07] VITALS: Ht 175.3 cm; Wt 73.0 kg
[2017-02-05] MEDS ORDERED: ALBU8.5H3 INH (09:41)
--- NOTE | 2017-02-05 12:25 | ERD ---
ER Documentation Chief Complaint Chief Complaint has hx of asthma would like a prescription for a rescue inhaler HPI 1-year-old male with a history of asthma presents the emergency department asking for a refill on ProAir air. Patient denies any chest pain, shortness of breath, wheezing or asthma exacerbation at this time. ROS All systems reviewed and are negative except as per history of present illness. Medications Home Meds Active Scripts Albuterol Sulfate* (Proair HFA*) 8.5 Gm Hfa.aer.ad, 2 PUFF INH Q4H Y for WHEEZING AND SOB, #1 INHALER Prov:ROXANA KENT PA-C 02/05/17 Albuterol Sulfate* (Proair HFA*) 8.5 Gm Hfa.aer.ad, 2 PUFF INH Q4, #1 INHALER Prov:BOBBY AVENDANO PA-C 12/31/16 Prednisone* (Prednisone*) 20 Mg Tab, 40 MG PO DAILY for 4 Days, TAB Prov:BOBBY AVENDANO PA-C 12/31/16 Albuterol Sulfate* (Ventolin HFA*) 18 Gm Hfa.aer.ad, 2 PUFF INHALATION Q4H, #1 INHALER Prov:JAZMIN AGGARWAL PA-C 09/28/16 Albuterol Sulfate* (Ventolin HFA*) 18 Gm Hfa.aer.ad, 2 PUFF INHALATION Q4H, #1 INHALER Prov:LEANNE FRANKLIN MD 08/31/16 Cyclobenzaprine Hcl* (Cyclobenzaprine Hcl*) 10 Mg Tablet, 10 MG PO TID, #15 TAB Prov:YRIS,LUAN 08/13/16 Ibuprofen* (Motrin*) 400 Mg Tab, 400 MG PO Q6, #30 TAB Prov:YRIS,LUAN 08/13/16 Cephalexin* (Keflex*) 500 Mg Capsule, 500 MG PO QID for 10 Days, CAP Prov:YRIS,LUAN 08/13/16 Albuterol Sulfate* (Proair HFA*) 8.5 Gm Hfa.aer.ad, 2 PUFF INH Q6H Y for WHEEZING AND SOB, #1 INHALER 2 Refills Prov:CADEN MORA MD 06/28/16 Hydrocodone/Acetaminophen (Bixby 5-325 Tablet) 1 Each Tablet, 1 TAB PO Q6H Y for SEVERE PAIN LEVEL 7-10, #20 TAB Prov:SHANELLETREMAINEGIULIA BOSCH NIGHT WORKER 03/30/16 Ibuprofen* (Motrin*) 600 Mg Tab, 600 MG PO Q6H Y for PAIN AND OR ELEVATED TEMP, #30 TAB Prov:KAITLYNGIULIA BOSCH NIGHT WORKER 03/30/16 Naproxen* (Naproxen*) 500 Mg Tablet, 500 MG PO BID Y for PAIN, #14 TAB Prov:JOEY CHRISTIE DO 02/01/16 Ranitidine Hcl* (Zantac*) 150 Mg Tablet, 150 MG PO BID Y for EPIGASTRIC PAIN, # 30 TAB Prov:JOEY CHRISTIE DO 02/01/16 Beclomethasone Dip* (Qvar 40*) 7.3 Gm Inha, 1 PUFF INH BID, #1 INHALER Prov:ANDREI FRENCH MD 12/10/15 Albuterol Sulfate* (Ventolin HFA*) 18 Gm Hfa.aer.ad, 2 PUFF INHALATION Q4H, #1 INHALER Prov:ANDREI FRENCH MD 12/10/15 Prednisone* (Prednisone*) 20 Mg Tab, 60 MG PO DAILY for 5 Days, TAB 60 mg by mouth for 2 days then 40 mg a mouth for 3 days. Prov:ANDREI FRENCH MD 12/10/15 Beclomethasone Dip* (Qvar 40*) 7.3 Gm Inha, 1 PUFF INH BID, #2 INHALER Prov:ANDREI FRENCH MD 07/21/15 Albuterol Sulfate* (Ventolin HFA*) 18 Gm Hfa.aer.ad, 2 PUFF INHALATION Q4H, #2 INHALER Prov:ANDREI FRENCH MD 07/21/15 Prednisone* (Prednisone*) 20 Mg Tab, 40 MG PO DAILY for 4 Days, TAB Prov:JAMES HAYES PA-C 06/25/15 Albuterol Sulfate* (Proair HFA*) 8.5 Gm Hfa.aer.ad, 2 PUFF INH Q4, #1 INHALER Prov:JAMES HAYES PA-C 06/25/15 Albuterol Sulfate* (Proair HFA*) 8.5 Gm Hfa.aer.ad, 2 PUFF INH Q4, #1 INHALER Prov:JAMES HAYES PA-C 05/05/15 Albuterol Sulfate* (Proventil* Neb) 0.083% Neb, 2.5 MG NEB Q4 Y for SHORTNESS OF BREATH, #30 EA Prov:JAMES HAYES PA-C 05/05/15 Clindamycin Hcl* (Clindamycin Hcl*) 300 Mg Capsule, 300 MG PO TID for 10 Days, CAP Prov:JAMES HAYES PA-C 05/05/15 Ibuprofen* (Motrin*) 600 Mg Tab, 600 MG PO Q6, #30 TAB Prov:JAMES HAYES PA-C 05/05/15 Hydrocodone Bit-Acetaminophen* (Bixby*) 5-325 Mg Tab, 1 TAB PO Q6 Y for PAIN, # 7 TAB Prov:JAMES HAYES PA-C 05/05/15 Prednisone* (Prednisone*) 20 Mg Tab, 40 MG PO DAILY for 4 Days, TAB Prov:JAMES HAYES PA-C 05/05/15 Beclomethasone Dip* (Qvar 40*) 7.3 Gm Inha, 1 PUFF INH BID, #1 INH Prov:ROBYN FIGUEROA PA-C 12/01/14 Albuterol Sulfate* (Albuterol Sulfate* HFA) 8.5 Gm Hfa.aer.ad, 1-2 PUFF INH Q4 Y for SHORTNESS OF BREATH, #1 EA Prov:ROBYN FIGUEROA PA-C 08/17/14 Allergies Allergies: Coded Allergies: No Known Allergy (Unverified , 02/05/17) PMhx/Soc History of Surgery: Yes (skull surgery) Anesthesia Reaction: No Hx Neurological Disorder: No Hx Respiratory Disorders: Yes (asthma) Hx Cardiac Disorders: No Hx Psychiatric Problems: No Hx Miscellaneous Medical Probl: No Hx Alcohol Use: No Hx Substance Use: No Hx Tobacco Use: No Smoking Status: Never smoker Physical Exam Vitals Vital Signs Date Time Temp Pulse Resp B/P Pulse Ox O2 Delivery O2 Flow Rate FiO2 02/05/17 09:07 98.0 61 18 115/63 100 Physical Exam Const: [] Head: Atraumatic Eyes: Normal Conjunctiva ENT: Normal External Ears, Nose and Mouth. Neck: Full range of motion..~ No meningismus. Resp: Clear to auscultation bilaterally Cardio: Regular rate and rhythm, no murmurs Abd: Soft, non tender, non distended. Normal bowel sounds Skin: No petechiae or rashes Back: No midline or flank tenderness Ext: No cyanosis, or edema Neur: Awake and alert Psych: Normal Mood and Affect Procedures/MDM Is a 21-year-old male with a history of asthma presenting to the emergency department asking for refill on ProAir air. On examination patient does not have any evidence of respiratory distress or asthma exacerbation. He stable to be discharged home with follow-up with primary care physician. Prescription for pro-air given Departure Diagnosis: Primary Impression: Encounter for medication refill Condition: Stable Patient Instructions: Taking Medicine Safely Referrals: [facility] (PCP) Additional Instructions: FOLLOW UP WITH YOUR PRIMARY CARE PHYSICIAN TOMORROW.Return to this facility if you are not improving as expected. ROXANA KENT PA-C Feb 05, 2017 12:25
== END 2017-02-05 10:05 | disposition home or self-care (01) ==
LOC: FTE 08:56
DX: Z76.0 Encounter for issue of repeat prescription (principal); J45.909 Unspecified asthma, uncomplicated
CPT/HCPCS: 99281

== ENCOUNTER 2017-03-21 11:35 | Emergency (ER) | END 2017-03-21 11:56 | disposition home or self-care (01) ==

== ENCOUNTER 2017-04-13 00:40 | Emergency (ER) | END 2017-04-13 07:46 | disposition home or self-care (01) ==

== ENCOUNTER 2017-06-09 00:35 | Emergency (ER) | END 2017-06-09 02:05 | disposition left against medical advice (07) ==

== ENCOUNTER 2017-07-19 09:36 | Emergency (ER) | END 2017-07-19 21:29 | disposition home or self-care (01) ==

== ENCOUNTER 2017-09-29 10:40 | Emergency (ER) | END 2017-09-29 12:01 | disposition home or self-care (01) ==